=== PATIENT | female | born 1950 | race Caucasian/White ===

== ENCOUNTER 2020-12-04 | Emergency (ER) | payer MEDICARE, OTHER ==
[2020-12-04] MEDS ORDERED: CADUET5 MG/20 MG PO (13:04)
== END 2020-12-04 13:20 | disposition home or self-care (01) ==
DX: S61.216D Laceration without foreign body of right little finger without damage to nail, subsequent encounter (principal); I10 Essential (primary) hypertension; X58.XXXD Exposure to other specified factors, subsequent encounter